=== PATIENT | male | born 1965 | race African-American/Black ===

== ENCOUNTER 2020-09-15 15:09 | Emergency (ER) | payer OTHER ==
[2020-09-15 17:32] LABS: BASOPHIL 0.4 % (0-2); EOSINOPHIL 0 % (0-5); HCT 43.1 % (42.0-52.0); HGB 14.4 g/dl (13.2-18.0); LYMPHOCYTE 26.4 % (15-48); MCH 30.3 pg (25.0-31.0); MCHC 33.4 g/dL (32.0-36.0); MCV 90.5 fL (78.0-100.0); MONOCYTE 6.3 % (0-12); MPV 11.1 fL (6.0-9.5); NEUTROPHIL 66.2 % (41-80); NRBC 0; PLT 192 K/uL (150-400); RBC 4.76 M/uL (4.70-6.00); RDW 12.1 % (11.5-14.0); WBC 2.8 K/uL (4.0-10.5)
[2020-09-15 17:49] LABS: ALBUMIN 3.4 g/dL (3.4-5.0); BILIRUBIN - TOTAL 0.6 mg/dL (0.2-1.0); BUN/CREAT RATIO (CALC) 8.7 RATIO; CREATININE 1.15 mg/dL (0.67-1.17); POTASSIUM 3.8 mmol/L (3.5-5.1); TOTAL PROTEIN 7.4 g/dL (6.4-8.2)
[2020-09-15 17:55] LABS: LACTIC ACID 0.8 mmol/L (0.4-1.9)
== END 2020-09-15 20:00 | disposition home or self-care (01) ==
LOC: FER 15:09
PROVIDERS: Nurse Practitioner Family
DX: U07.1 COVID-19 (principal); Z98.890 Other specified postprocedural states; Z79.899 Other long term (current) drug therapy
CPT/HCPCS: 36415; 71046; 80053; 83605; 85025; 87040; J1100; J1885; J2405; J7030

== ENCOUNTER 2020-09-17 02:42 | Day surgery (SDCO) | payer OTHER ==
[2020-09-17 03:10] LABS: BASOPHIL 0.4 % (0-2); EOSINOPHIL 0 % (0-5); HCT 40.9 % (42.0-52.0); HGB 13.6 g/dl (13.2-18.0); LYMPHOCYTE 20.2 % (15-48); MCH 30.3 pg (25.0-31.0); MCHC 33.3 g/dL (32.0-36.0); MCV 91.1 fL (78.0-100.0); MONOCYTE 3.4 % (0-12); MPV 10.5 fL (6.0-9.5); NEUTROPHIL 75.8 % (41-80); NRBC 0; PLT 215 K/uL (150-400); RBC 4.49 M/uL (4.70-6.00); RDW 12.2 % (11.5-14.0); WBC 5.1 K/uL (4.0-10.5)
[2020-09-17 03:24] LABS: ALBUMIN 3.1 g/dL (3.4-5.0); BILIRUBIN - TOTAL 0.5 mg/dL (0.2-1.0); BUN/CREAT RATIO (CALC) 9.5 RATIO; CREATININE 1.05 mg/dL (0.67-1.17); GLOBULIN (CALCULATION) 3.8 g/dL; MAGNESIUM 1.7 mg/dL (1.8-2.4); POTASSIUM 3.3 mmol/L (3.5-5.1); TOTAL PROTEIN 6.9 g/dL (6.4-8.2)
[2020-09-17 03:29] LABS: LACTIC ACID 1.1 mmol/L (0.4-1.9)
[2020-09-18 05:46] LABS: BASOPHIL 0 % (0-2); EOSINOPHIL 0 % (0-5); HCT 37.7 % (42.0-52.0); HGB 12.5 g/dl (13.2-18.0); LYMPHOCYTE 21.3 % (15-48); MCH 30.4 pg (25.0-31.0); MCHC 33.2 g/dL (32.0-36.0); MCV 91.7 fL (78.0-100.0); MONOCYTE 9.4 % (0-12); NEUTROPHIL 68.8 % (41-80); NRBC 0; PLT 225 K/uL (150-400); RBC 4.11 M/uL (4.70-6.00); RDW 12.5 % (11.5-14.0); WBC 4.3 K/uL (4.0-10.5)
[2020-09-18 06:31] LABS: ALBUMIN 2.7 g/dL (3.4-5.0); BILIRUBIN - TOTAL 0.5 mg/dL (0.2-1.0); BUN/CREAT RATIO (CALC) 11.1 RATIO; CREATININE 0.99 mg/dL (0.67-1.17); GLOBULIN (CALCULATION) 3.7 g/dL; MAGNESIUM 1.8 mg/dL (1.8-2.4); PHOSPHORUS 3.5 mg/dL (2.6-4.7); TOTAL PROTEIN 6.4 g/dL (6.4-8.2)
--- NOTE | 2020-09-19 02:20 | NUR ---
PT RECEIVED BREATHING TREATMENT FROM RT. PT COMPLAINING OF SOA AND COUGHING UP SPUTUM. PT SPO2 READING BOUNCING FROM 87 TO 91%. SPOKE WITH RT AND SUGGESTED TO PLACE PT ON 2L NC.
[2020-09-19 05:48] LABS: HCT 39.7 % (42.0-52.0); HGB 13.4 g/dl (13.2-18.0); MCH 30.7 pg (25.0-31.0); MCHC 33.8 g/dL (32.0-36.0); MCV 91.1 fL (78.0-100.0); MPV 10.3 fL (6.0-9.5); RBC 4.36 M/uL (4.70-6.00); RDW 12.3 % (11.5-14.0); WBC 4.9 K/uL (4.0-10.5)
[2020-09-19 06:11] LABS: ALBUMIN 2.9 g/dL (3.4-5.0); BILIRUBIN - TOTAL 0.5 mg/dL (0.2-1.0); BUN/CREAT RATIO (CALC) 12.9 RATIO; CREATININE 0.93 mg/dL (0.67-1.17); POTASSIUM 4.2 mmol/L (3.5-5.1); TOTAL PROTEIN 6.9 g/dL (6.4-8.2)
[2020-09-20] MEDS ORDERED: B-1100 MG PO (10:11)
[2020-09-20] MEDS ORDERED: ASCORBIC ACID500 MG PO (10:11)
[2020-09-20] MEDS ORDERED: MEDROL 4MG DOSEP4 MG PO (10:11)
[2020-09-20] MEDS ORDERED: VITAMIN B-650 MG PO (10:11)
[2020-09-20] MEDS ORDERED: VITAMIN D325 MC1 PO (10:11)
== END 2020-09-20 12:19 | disposition home or self-care (01) ==
LOC: FER 02:42 → FMS 05:54
PROVIDERS: Emergency Medicine Emergency Medical Services; Hospitalist; Nurse Practitioner; ADMIT Internal Medicine
DX: U07.1 COVID-19 (principal); J12.82 Pneumonia due to coronavirus disease 2019; E87.6 Hypokalemia; E83.42 Hypomagnesemia; J96.01 Acute respiratory failure with hypoxia
CPT/HCPCS: 36415; 36600; 71045; 71275; 80048; 80053; 82803; 83605; 83735; 84100; 84145; 85025; 85379; 93005; 94010; 94640; 94760; 94762; C9399; G0378; J0456; J0696; J1100; J1650; J1885; J2405; J7050; J7120; Q9967; U0002